=== PATIENT | male | born 1945 | race Caucasian/White ===

== ENCOUNTER 2022-03-27 02:07 | Emergency (ER) | payer OTHER ==
[2022-03-27] MEDS ORDERED: Morphine 4 MG/ML VIAL ONE ×2 (03:00→06:39)
[2022-03-27] MEDS ORDERED: Ondansetron PF 4 MG/2 ML Vial ONE (03:01)
[2022-03-27 03:17] LABS: ALT (SGPT) 17 U/L (8-55); AST (SGOT) 29 U/L (5-34); Alkaline Phosphatase 89 U/L (40-110); Anion Gap 14 mmol/L (10-20); BUN (Urea Nitrogen) 22 mg/dL (8.4-25.7); Bilirubin, Total 1.3 mg/dL (0.2-1.2); Calc. Creatinine Clearance 0 mL/min (70-130); Calcium 8.9 mg/dL (7.8-10.44); Carbon Dioxide 27 mmol/L (23-31); Chloride 96 mmol/L (98-107); Estimated GFR 87; Globulin 3.5 g/dL (2.4-3.5); Glucose 251 mg/dL (83-110); Magnesium 2.1 mg/dL (1.6-2.6); Potassium 3.8 mmol/L (3.5-5.1); Protein, Total 6.5 g/dL (5.8-8.1); Sodium 133 mmol/L (136-145)
[2022-03-27 03:53] LABS: Hemoglobin 6.9 g/dL (13.5-17.5); Mean Corpuscular Volume 97.1 fl (81.2-95.1); Mean Platelet Volume 12.4 fl (7.4-10.4); Platelet Count 32 10x3/uL (150-450); RBC Distribution Width 20.6 % (11.5-14.5); Red Blood Cell (RBC) Count 2.09 10x6/uL (4.32-5.72); White Blood Cell (WBC) Count 7.9 10x3/uL (3.5-10.5)
[2022-03-27 04:13] LABS: MDiff Complete? YES
[2022-03-27 04:35] LABS: Band 4 % (5-11); Lymphocytes 41 % (21-51); Monocytes 15 % (0-10); Neutrophil 35 % (42-75); Nucleated RBC 5 % (0); Promyelocytes 3 % (0-0)
[2022-03-27 04:37] LABS: Anisocytosis MODERATE=16-30 cells (100X) (0-5/hpf); Macrocytosis SLIGHT = 6-15 cells (100X) (0-5/hpf); Microcytosis SLIGHT = 6-15 cells (100X) (0-5/hpf)
[2022-03-27 04:38] LABS: Hypochromia SLIGHT = 6-15 cells (100X) (0-5/hpf); Ovalocytes SLIGHT = 2-5 cells (100X) (0-1/hpf); Platelet Morphology Comment Appears Decreased
[2022-03-27 05:56] LABS: SARS-CoV-2 NAA Rapid Test Not Detected (NotDetected)
[2022-03-27] MEDS ORDERED: Acetaminophen/Codeine 30-300mg Tablet ONE (15:58)
== END 2022-03-27 14:26 | disposition home or self-care (01) ==
LOC: CSHERS 02:07
DX: G89.3 Neoplasm related pain (acute) (chronic) (principal); E11.22 Type 2 diabetes mellitus with diabetic chronic kidney disease; I13.0 Hypertensive heart and chronic kidney disease with heart failure and stage 1 through stage 4 chronic kidney disease, or unspecified chronic kidney disease; I50.9 Heart failure, unspecified; N18.9 Chronic kidney disease, unspecified; D63.1 Anemia in chronic kidney disease; Z20.822 Contact with and (suspected) exposure to COVID-19; Z79.899 Other long term (current) drug therapy
CPT/HCPCS: 36415; 36430; 80053; 83735; 85025; 86850; 86900; 86901; 96374; 96375; 96376; J2270; J2405; P9016; U0002

== ENCOUNTER 2022-04-13 10:09 | Emergency (ER) | payer MEDICARE ==
[2022-04-13] MEDS ORDERED: Cefepime 2 GM VIAL ONE (10:46)
[2022-04-13 11:05] LABS: Hemoglobin 6.9 g/dL (13.5-17.5); Mean Corpuscular HGB CONC 32.9 g/dL (32.0-36.0); Mean Corpuscular Hemoglobin 32.4 pg (27.0-33.0); Mean Corpuscular Volume 98.6 fl (81.2-95.1); Platelet Count 30 10x3/uL (150-450); RBC Distribution Width 20.2 % (11.5-14.5); Red Blood Cell (RBC) Count 2.13 10x6/uL (4.32-5.72); White Blood Cell (WBC) Count 43.3 10x3/uL (3.5-10.5)
[2022-04-13 11:06] LABS: MDiff Complete? YES; Mean Platelet Volume 9.3 fl (7.4-10.4)
[2022-04-13 11:13] LABS: INR-International Normal Ratio 1.2; PTT 32.6 sec (22.0-33.0); Prothrombin Time 12.4 sec (9.5-12.1)
[2022-04-13 11:18] LABS: ALT (SGPT) 29 U/L (8-55); AST (SGOT) 42 U/L (5-34); Albumin 2.5 g/dL (3.4-4.8); Alkaline Phosphatase 118 U/L (40-110); Anion Gap 20 mmol/L (10-20); BUN (Urea Nitrogen) 78 mg/dL (8.4-25.7); Bilirubin, Total 2.3 mg/dL (0.2-1.2); Calc. Creatinine Clearance 0 mL/min (70-130); Calcium 7.7 mg/dL (7.8-10.44); Carbon Dioxide 21 mmol/L (23-31); Chloride 101 mmol/L (98-107); Estimated GFR 12; Globulin 3.1 g/dL (2.4-3.5); Glucose 113 mg/dL (83-110); Lipase 7 U/L (8-78); Magnesium 2.2 mg/dL (1.6-2.6); Potassium 4.5 mmol/L (3.5-5.1); Protein, Total 5.6 g/dL (5.8-8.1); Sodium 137 mmol/L (136-145)
[2022-04-13 11:33] LABS: Band 3 % (5-11); Neutrophil 59 % (42-75); Reactive Lymphocytes 4 % (0-10)
[2022-04-13 11:36] LABS: CKMB 0.7 ng/mL (0-6.6); Lymphocytes 25 % (21-51); Monocytes 9 % (0-10)
[2022-04-13 11:38] LABS: Macrocytosis SLIGHT = 6-15 cells (100X) (0-5/hpf); Microcytosis SLIGHT = 6-15 cells (100X) (0-5/hpf); Ovalocytes SLIGHT = 2-5 cells (100X) (0-1/hpf); Platelet Morphology Comment Appears Decreased
[2022-04-13 11:39] LABS: Reflex for Review?? YES
[2022-04-13] MEDS ORDERED: Fentanyl 100 MCG/2 ML VIAL ONE (11:42)
[2022-04-13 11:48] LABS: Clarity Cloudy (Clear); Glucose, Urine (Dipstick) Normal (Negative); Ketone, Urine Negative (Negative); Specific Gravity, Urine 1.025 (1.005-1.030)
[2022-04-13 12:18] LABS: SARS-CoV-2 NAA Rapid Test Not Detected (NotDetected)
[2022-04-13 12:21] LABS: Bilirubin Unable to Interpret (Negative); Blood, Urine Unable to Interpret (Negative); Leukocyte Unable to Interpret (Negative); Nitrite Unable to Interpret (Negative); Protein, Urine (Dipstick) Unable to Interpret mg/dl (Neg-Trace); Urobilinogen UNABLE TO INTERPRET mg/dL (Less than 2)
[2022-04-13 12:22] LABS: RBC/HPF 0-3 HPF (0-3); WBC/HPF 0-3 HPF (0-3)
[2022-04-13 12:23] LABS: Bacteria/HPF Rare-Few HPF (None Seen); Squamous Epithelial None Seen HPF (0-3)
== END 2022-04-13 14:22 ==
LOC: CSHERS 10:09
DX: A41.9 Sepsis, unspecified organism (principal); R65.21 Severe sepsis with septic shock; N17.9 Acute kidney failure, unspecified; R41.82 Altered mental status, unspecified; Z51.5 Encounter for palliative care; C95.90 Leukemia, unspecified not having achieved remission; J18.9 Pneumonia, unspecified organism; E11.22 Type 2 diabetes mellitus with diabetic chronic kidney disease; I13.0 Hypertensive heart and chronic kidney disease with heart failure and stage 1 through stage 4 chronic kidney disease, or unspecified chronic kidney disease; N18.9 Chronic kidney disease, unspecified; E03.9 Hypothyroidism, unspecified; I25.10 Atherosclerotic heart disease of native coronary artery without angina pectoris; Z20.822 Contact with and (suspected) exposure to COVID-19
CPT/HCPCS: 71045; 80053; 82553; 83690; 83735; 84484; 85025; 85610; 85730; 87040; 93005; U0002; 36415; 81003; 81015; 85060; 96374; 96375; J0692; J3010